=== PATIENT | female | born 1965 | race African-American/Black ===

== ENCOUNTER 2018-09-21 12:44 | Emergency (ER) | payer OTHER ==
[2018-09-21] MEDS: KETOROLAC 60 MG INJ IM (13:40)
== END 2018-09-21 14:52 | disposition home or self-care (01) ==
LOC: FTE 12:44
DX: M79.671 Pain in right foot (principal); I10 Essential (primary) hypertension
CPT/HCPCS: 73630; 96372; 99284-25

== ENCOUNTER 2019-02-10 12:32 | Emergency (ER) | payer OTHER ==
[2019-02-10] MEDS: ONDANSETRON (ODT) 4 MG TAB ODT (13:45)
[2019-02-10] MEDS: DEXAMETHASONE 10 MG/ML 1 ML INJ IM (13:52)
[2019-02-10] MEDS: KETOROLAC 30 MG INJ IM (13:52)
== END 2019-02-10 14:43 | disposition home or self-care (01) ==
LOC: FTE 12:32
DX: M54.5 Low back pain (principal); I10 Essential (primary) hypertension
CPT/HCPCS: 96372; 99284-25